=== PATIENT | female | born 1940 | race Caucasian/White ===

== ENCOUNTER → 2016-08-05 | Outpatient (CLI) | payer MEDICARE | END | disposition home or self-care (01) | LOC: RAD.S 07-23 15:24 | DX: Z12.31 Encounter for screening mammogram for malignant neoplasm of breast (principal) ==

== ENCOUNTER → 2016-08-06 | Outpatient (CLI) | payer MEDICARE | END | disposition home or self-care (01) | LOC: RAD.S 12:26 | DX: M85.89 Other specified disorders of bone density and structure, multiple sites (principal) ==

== ENCOUNTER → 2016-11-01 | Outpatient (CLI) | payer MEDICARE | END | disposition home or self-care (01) | LOC: RAD.S 11:03 | DX: Z01.818 Encounter for other preprocedural examination (principal) ==